=== PATIENT | female | born 1980 | race Caucasian/White ===

== ENCOUNTER 2021-11-02 22:22 | Emergency (ER) | payer MEDICAID, SELFPAY ==
[2021-11-02 22:25] VITALS: BP 128/76; PULSE 114; RESP 18; TEMP 36.9; O2SAT 100; BMI 20.5
[2021-11-02 22:32] VITALS: PULSE 110; RESP 21
--- NOTE | 2021-11-02 22:52 | EKG12_ITS ---
Test Reason : DIZZY, PALPATATIONS Blood Pressure : / mmHG Vent. Rate : 104 BPM Atrial Rate : 104 BPM P-R Int : 144 ms QRS Dur : 082 ms QT Int : 346 ms P-R-T Axes : 072 055 067 degrees QTc Int : 454 ms Sinus tachycardia Otherwise normal ECG Confirmed by GRIS MERLOS, NAM ([id number]), deputy editor in chief SHARLENE DAY ([id number]) on 11/03/2021 10:37:47 AM Referred By: Confirmed By:NAM LANDRY MD
--- NOTE | 2021-11-02 22:52 | CT_ITS ---
STUDY: CT BRAIN WITHOUT CONTRAST ADMINISTRATION OF 2330 HOURS ON 11/02/2021 REASON FOR EXAM: 41-year-old female with dizziness. RADIATION DOSAGE (If Supplied By Facility): CTDIvol = ( 44.99 ) mGy, DLP = ( 812.98 ) mGycm. TECHNIQUE: Transaxial CT imaging of the brain was performed without administration of intravenous contrast material. Individualized dose optimization techniques were used for this CT. Sagittal and coronal reconstructions were obtained and all were demonstrated in osseous and soft tissue algorithms. COMPARISON: No relevant priors. FINDINGS: Normal ventricular system without a midline shift. No intracranial hemorrhage or hematomas. No intracranial mass lesions or infarcts. Normal sella and pituitary. Normal brainstem and posterior fossa. No other intracranial pathology. Normal calvarium without fractures. Normal paranasal sinuses. CT/Brain/Head without Contrast IMPRESSION: 1. Normal unenhanced CT of the brain. 2. No intracranial neoplasms or infarct. 3. No intracranial hemorrhage or hematomas. 4. Normal sella, pituitary, brainstem, and posterior fossa. 5. Normal calvarium and paranasal sinuses. Electronically Signed: Fransisco Garsia MD at 23:47 EDT ,
[2021-11-02] MEDS: diazePAM 5 MG Tablet PO (23:02)
[2021-11-02] MEDS: 0.9% Normal Saline 1,000 ML 999 ML IV (23:03)
[2021-11-02 23:38] LABS: Absolute Neutrophil Count 6.5 X10^3/uL (2.0-7.7); Basophil# 0.07 X10^3/uL; Basophil% 0.7 % (0-1); Eosinophil# 0.07 X10^3/uL; Eosinophils% 0.7 % (0-5); Hematocrit 42.2 % (37-47); Hemoglobin 12.8 g/dL (12.0-15.0); Lymphocyte % 27.2 % (19-41); Mean Corp Hgb Conc 30.3 g/dL (32-36); Mean Corpuscular Hgb 26.2 pg (27.0-32.0); Mean Corpuscular Volume 86.5 fL (81-99); Mean Platelet Vol. 11.6 fl (6.2-12.0); Monocyte# 0.76 X10^3/uL; Monocyte% 7.4 % (0-10); NRBC Flagged by Analyzer 0 % (0-5); Neutrophil # 6.48 X10^3/uL (2.7-7.7); Neutrophil % 62.7 % (47-70); Platelet Count 340 K/mm3 (150-450); RBC Distribution Width CV 13.5 % (11.6-14.6); RBC Distribution Width SD 42.7 fl (35.1-43.9); Red Blood Count 4.88 M/mm3 (4.2-5.4); White Blood Count 10.3 K/mm3 (4.4-11.0)
[2021-11-02 23:49] VITALS: PULSE 98; RESP 16
[2021-11-02 23:51] LABS: Anion Gap 5 (5-15); BUN 10 mg/dL (7-18); BUN/Creat Ratio 13.1 RATIO (10-20); Calcium,Total 8.9 mg/dL (8.5-10.1); Chloride 105 mmol/L (98-107); Creatinine, Serum 0.76 mg/dL (0.55-1.02); EST Glomerular Filtration Rate 89 mL/min (>60); Est Glom Filt Rate - Afr Amer 107 mL/min (>60); Estimated Creatinine Clearance 94.17 ml/min; Glucose 108 mg/dL (74-106); Magnesium 2.2 mg/dL (1.6-2.6); Potassium 4.4 mmol/L (3.5-5.1); Sodium Level 139 mmol/L (136-145)
--- NOTE | 2021-11-03 00:02 | EDS_ITS ---
HPI History of Present Illness Chief Complaint: Dizziness Narrative Narrative: Patient is a 41-year-old female with past medical history of Graves' disease currently on Synthroid. She states for the past 5 to 7 days if she changes positions she will feel dizzy. She states if she lies perfectly still the symptoms seem to improve but not completely resolve. She states that she is also had some loose stool diarrhea associated with this. She states that she has been given a time to pass but has not resolved and secondary to this comes in for evaluation. She denies any tinnitus or ear pain she denies any head trauma or change in vision [facility] Medical History Graves' disease Home Medications Synthroid 175 mcg PO/SL DAILY 11/02/21 [History Last Taken Unknown] diazepam 5 mg tablet (Valium) 5 mg PO TID PRN dizziness or vertigo 5 days #15 tabs 11/03/21 [Rx Last Taken Unknown] Allergy/AdvReac Type Severity Reaction Status Date / Time No Known Allergies Allergy Verified 11/02/21 22:24 Surgical History (Updated 11/02/21 @ 22:37 by Marie Hernandez) Hx of appendectomy Social History Smoking Status: Current every day smoker tobacco type: cigarettes ROS ROS ED Constitutional Constitutional ED: Denies chills or fever(s) Eyes Eyes: Denies blurry vision or change in vision ENT ENT ED: Denies ear pain or sore throat Cardiovascular Cardiovascular: Denies chest pain Respiratory/Chest Respiratory/Chest: Denies cough or dyspnea Gastrointestinal Gastrointestinal: Reports diarrhea; Denies abdominal pain, nausea or vomiting Genitourinary Genitourinary ED: Denies dysuria Musculoskeletal Musculoskeletal: Denies myalgias Integumentary Denies rash Neurologic Neurologic: Reports other Details: Positive dizziness ; Denies headache(s) Hematologic/Lymphatic Hematologic/Lymphatic: Denies easy bleeding or easy bruising EXAM Physical Exam Const Vital Signs: 11/02/21 22:25 11/02/21 22:32 11/02/21 22:32 Temperature 98.4 F Temperature Source Temporal Pulse Rate 114 H 110 H Respiratory Rate 18 21 H Respiratory Effort Normal Non-Labored Respiratory Pattern Normal Blood Pressure 128/76 H Blood Pressure Mean 93 Pulse Ox 100 Oxygen Delivery Method Room Air 11/02/21 23:49 Temperature Temperature Source Pulse Rate 98 Respiratory Rate 16 Respiratory Effort Respiratory Pattern Blood Pressure Blood Pressure Mean Pulse Ox Oxygen Delivery Method Positive well nourished and well developed General Appearance ED: well developed HEENT Reports TM's clear and moist mucous membranes Tympanic Membrane ED: Yes TM's clear Eyes PERRL and EOMs intact bilaterally Neck supple Resp normal respiratory effort and clear to auscultation bilaterally Cardio regular rhythm Rate: tachycardic and other Other Details: Tachycardic rate with regular rhythm radial pulses are plus 2 out of 4 bilaterally are equal and symmetric GI normal to inspection, nondistended, normoactive bowel sounds, non-tender and non-distended Auscultation: normoactive bowel sounds Palpation: soft Extremity normal to inspection Neuro oriented x3 and CN's II-XII intact bilaterally Neuro Narrative: Cranial nerves II through XII are grossly intact there are no focal neurologic deficit. No pronator drift no dysmetria no truncal ataxia. There is mild ho rizontal nystagmus noted and positive Hallpike Cromwell exam on left. NIH stroke scale score of 0 Sensorium / Orientation: alert Psych mental status grossly normal Skin no rashes or lesions noted MDM MDM MDM Narrative Medical decision making narrative: Patient presented to the ER mildly tachycardic but otherwise with stable vitals. Her history and neuro exam is consistent with peripheral vertigo. Based on her symptoms and mildly elevated heart rate did elect to perform basic laboratory studies and head CT. Labs revealed no clinically significant findings. Head CT revealed no acute pathology as well. Patient was hydrated with 1 L of fluid and given 5 mg of Valium. On reevaluation she reports feeling better and is able to ambulate with a steady gait and is therefore safe for discharge. Lab Data Attestation: I reviewed the patient's lab results. Labs: Laboratory Results - last 24 hr 11/02/21 11/02/21 23:10 23:10 WBC 10.3 RBC 4.88 Hgb 12.8 Hct 42.2 MCV 86.5 MCH 26.2 L MCHC 30.3 L RDW Std Deviation 42.7 RDW Coeff of Dayne 13.5 Plt Count 340 MPV 11.6 Immature Gran % (Auto) 1.300 H Neut % (Auto) 62.7 Lymph % (Auto) 27.2 [place] % (Auto) 7.4 Eos % (Auto) 0.7 Baso % (Auto) 0.7 Absolute Neuts (auto) 6.5 Absolute Lymphs (auto) 2.80 Nucleated RBC % 0 Sodium 139 Potassium 4.4 Chloride 105 Carbon Dioxide 29.0 Anion Gap 5 BUN 10 Creatinine 0.76 Estim Creat Clear Calc 94.17 Est GFR (MDRD) Af Amer 107 Est GFR (MDRD) Non-Af 89 BUN/Creatinine Ratio 13.1 Glucose 108 H Calcium 8.9 Magnesium 2.2 Radiography Diagnostic Testing: Clinical Impression(s) from Imaging Studies Brain CT 11/02/21 22:52 IMPRESSION: 1. Normal unenhanced CT of the brain. 2. No intracranial neoplasms or infarct. 3. No intracranial hemorrhage or hematomas. 4. Normal sella, pituitary, brainstem, and posterior fossa. 5. Normal calvarium and paranasal sinuses. Electronically Signed: Fransisco Garsia MD at 23:47 EDT Reading Location ID and State: [address] [place] [address] Tel , Service support , Discharge Plan Triage Chief Complaint: Dizziness ED Provider: Jonathan Galan Dx/Rx/DC Orders Clinical Impression: Peripheral vertigo Instructions: Vertigo Inner Ear Problems, Vertigo Staying Safe Prescriptions: New diazepam [Valium] 5 mg tablet 5 mg PO TID PRN (Reason: dizziness or vertigo) 5 Days Qty: 15 0RF No Action Synthroid 175 mcg PO/SL DAILY Referrals: Manoj Gillis MD [Med Staff - [employer]] - 3-5 Days if not improving Activity Restrictions/Additional Instructions: Please try the Matti maneuver at home to help resolve symptoms faster and return to the ER should you have any further concerns Disposition Disposition: Home, Self Care
== END 2021-11-03 00:39 | disposition home or self-care (01) ==
PROVIDERS: Emergency Provider Emergency Medicine; Visit Provider Emergency Medicine
DX: H81.399 Other peripheral vertigo, unspecified ear (principal); F17.210 Nicotine dependence, cigarettes, uncomplicated; E05.00 Thyrotoxicosis with diffuse goiter without thyrotoxic crisis or storm
CPT/HCPCS: 70450; 80048; 83735; 85025; 93005; 96360; 99282; J7030

== ENCOUNTER 2022-07-27 09:37 | Inpatient (IN) | payer MEDICAID, SELFPAY ==
[2022-07-27] VITALS (8 sets, daily range): BP systolic 96–137; BP diastolic 68–86; PULSE 65–78; RESP 16–18; TEMP 36.3–36.8; O2SAT 97–100; BMI 20.7; BMI 19.9
--- NOTE | 2022-07-27 09:50 | EX.ED.DYSGE1 ---
HPI History of Present Illness Chief Complaint: General Illness Narrative Narrative: Patient presents feeling weak and dizzy. She thinks her thyroid may be off. She is supposed to be on Synthroid but she does not have a place to stay and has not had her medication in some time. She feels shaky and cold. She did spend the night outside and I did get a cold last night. She does not have any headache. She has no neurological symptoms. No recent fevers or chills. No recent trauma. PFSH PFS Medical History Graves' disease Home Medications Synthroid 175 mcg PO/SL DAILY 11/02/21 [History Last Taken Unknown] diazepam 5 mg tablet (Valium) 5 mg PO TID PRN dizziness or vertigo 5 days #15 tabs 11/03/21 [Rx Last Taken Unknown] Allergy/AdvReac Type Severity Reaction Status Date / Time No Known Allergies Allergy Verified 07/27/22 09:41 Surgical History Hx of appendectomy Social History Smoking Status: Current every day smoker tobacco type: cigarettes ROS ROS ED ROS Narrative Past medical history: Hypothyroidism Medications: Synthroid, no other chronic medications Social history: As in HPI Review of systems: All systems negative except as indicated General: No fever. Generalized weakness Eyes: No visual changes ENT: No upper airway congestion, normal voice Neck: No neck pain Cardiovascular: No chest pain Respiratory: No shortness of breath or cough Gastrointestinal: No abdominal pain, nausea vomiting or diarrhea Genitourinary: No dysuria. Denies Musculoskeletal: Denies myalgias no difficulty with ambulation Skin: No rash EXAM Physical Exam Narrative Exam Narrative: Physical exam General: Patient appears comfortable. She does not appear ill Head: Normocephalic, Atraumatic Eyes: Conjunctiva not pale ENT: Slightly dry mucous membranes Neck: Supple, Nontender, No lymphadenopathy Cardiovascular: Regular rate, Regular rhythm Respiratory: No distress, CTA bilaterally Abdomen: Soft, Nontender, Nondistended Back: Nontender, Normal Inspection. Negative for: CVA tenderness Extremities: Nontender, No edema Skin: Normal color, No rash Neurological: Alert, Normal Strength, Normal Sensation Psychological: Normal affect Const Vital Signs: 07/27/22 09:38 07/27/22 10:04 07/27/22 12:00 Temperature 98.3 F Temperature Source Temporal Pulse Rate 78 71 Respiratory Rate 18 16 Respiratory Effort Normal Non-Labored Respiratory Pattern Normal Blood Pressure 131/86 H 137/83 H Blood Pressure Mean 101 101 Pulse Ox 99 97 Oxygen Delivery Method Room Air Room Air MDM MDM MDM Narrative Medical decision making narrative: Patient is found to have significant hypothyroidism with a TSH greater than 500. I went to reevaluate her, she now has paranoias and delusions. I try to ambulate her and she was somewhat off balance. She tells me she has not used meth since 2 days ago, she denies any other drugs. She does have a history of bipolar and she could have a psychotic event. However she is not medically clear for psychiatry due to her hypothyroidism. At this time her blood pressure is normal heart rates normal she does not have any edema, there are no other signs of myxedema coma. I will admit her to the hospital and give her thyroid medication. Lab Data Labs: Laboratory Results - last 24 hr 07/27/22 07/27/22 10:03 10:03 WBC 9.0 RBC 3.47 L Hgb 10.2 L Hct 31.9 L MCV 91.9 MCH 29.4 MCHC 32.0 RDW Std Deviation 48.4 H RDW Coeff of Dayne 14.4 Plt Count 249 MPV 12.2 H Immature Gran % (Auto) 0.100 Neut % (Auto) 61.2 Lymph % (Auto) 31.3 Vance % (Auto) 5.3 Eos % (Auto) 1.0 Baso % (Auto) 1.1 H Absolute Neuts (auto) 5.5 Absolute Lymphs (auto) 2.82 Nucleated RBC % 0 Sodium 137 Potassium 3.6 Chloride 105 Carbon Dioxide 25.0 Anion Gap 7 BUN 14 Creatinine 1.17 H Estim Creat Clear Calc 61.00 Est GFR (MDRD) Af Amer 65 Est GFR (MDRD) Non-Af 54 L BUN/Creatinine Ratio 12.0 Glucose 82 Calcium 8.6 Total Bilirubin 0.40 AST 105 H ALT 44 Alkaline Phosphatase 95 Total Protein 8.0 Albumin 4.2 Globulin 3.8 Albumin/Globulin Ratio 1.1 TSH > 500.00 H Discharge Plan Triage Chief Complaint: General Illness ED Provider: Freddy Pickens Dx/Rx/DC Orders Clinical Impression: Hypothyroidism, Psychosis, Acute confusion, History of drug abuse Prescriptions: No Action Synthroid 175 mcg PO/SL DAILY diazepam [Valium] 5 mg tablet 5 mg PO TID PRN (Reason: dizziness or vertigo) 5 Days Qty: 15 0RF Primary Care Provider: Care Physician,No Primary Referrals: Care Physician,No Primary [Primary Care Provider] - Disposition Disposition: Acute Care Hospital [facility]
[2022-07-27 10:14] LABS: Absolute Lymphocyte Count 2.82 X10^3/uL (0.83-4.51); Absolute Neutrophil Count 5.5 X10^3/uL (2.0-7.7); Basophil% 1.1 % (0-1); Eosinophil# 0.09 X10^3/uL; Hematocrit 31.9 % (37-47); Hemoglobin 10.2 g/dL (12.0-15.0); Lymphocyte # 2.82 X10^3/ul (0.83-4.51); Lymphocyte % 31.3 % (19-41); Mean Corpuscular Hgb 29.4 pg (27.0-32.0); Mean Corpuscular Volume 91.9 fL (81-99); Mean Platelet Vol. 12.2 fl (6.2-12.0); Monocyte# 0.48 X10^3/uL; Monocyte% 5.3 % (0-10); NRBC Flagged by Analyzer 0 % (0-5); Neutrophil % 61.2 % (47-70); Platelet Count 249 K/mm3 (150-450); RBC Distribution Width CV 14.4 % (11.6-14.6); RBC Distribution Width SD 48.4 fl (35.1-43.9); Red Blood Count 3.47 M/mm3 (4.2-5.4)
[2022-07-27 10:50] LABS: ALB/GLOB Ratio 1.1 RATIO (0.9-2.4); AST(SGOT) 105 U/L (15-37); Alanine Aminotransfer ALT/SGPT 44 U/L (13-56); Albumin, Serum 4.2 g/dL (3.2-5.0); Alkaline Phosphatase 95 U/L (45-117); Anion Gap 7 (5-15); BUN 14 mg/dL (7-18); Calcium,Total 8.6 mg/dL (8.5-10.1); Chloride 105 mmol/L (98-107); Creatinine, Serum 1.17 mg/dL (0.55-1.02); EST Glomerular Filtration Rate 54 mL/min (>60); Est Glom Filt Rate - Afr Amer 65 mL/min (>60); Globulin 3.8 g/dL (2.2-4.2); Glucose 82 mg/dL (74-106); Potassium 3.6 mmol/L (3.5-5.1); Sodium Level 137 mmol/L (136-145)
[2022-07-27 11:34] LABS: Thyroid Stim Hormone (TSH) > 500.00 uIU/mL (0.358-3.74)
[2022-07-27] MEDS: Levothyroxine 175 MCG Tablet PO (12:18)
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
--- NOTE | 2022-07-27 14:11 | NURSING ---
DR JERE FORREST
--- NOTE | 2022-07-27 14:24 | NURSING ---
MED SURG OQUENDO HYPOTHIROD
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
[2022-07-27 15:03] LABS: Free T3 < 0.5 pg/mL (2.18-3.98); T4 Free Direct 0.13 ng/dL (0.76-1.46)
--- NOTE | 2022-07-27 16:25 | NURSING ---
AUGUSTIN Aguilar updated on suicide precautions.
[2022-07-27] MEDS: 0.9% Saline Lock 10 ML Syringe IV ×2 (16:53→17:55)
[2022-07-27] MEDS: LEVOTHYROXINE SODIUM 100 MCG VIAL 70 MCG IV (17:54)
[2022-07-27] MEDS: Ensure Plus High Protein 120 ML LIQUID PO (18:06)
[2022-07-28 04:06] LABS: Red Blood Cells-Urine 0 SEEN /hpf (0-5); Squamous Epithelial Cells - UA 0 SEEN /hpf (5-10); White Blood Cells 0 SEEN /hpf (0-5)
[2022-07-28 04:07] LABS: Color, Urine Yellow (Yellow); Glucose, Dipstick Normal (Normal); Ketone-Dipstick Negative (Negative); Leukocyte Esterase-Dipstick Negative /ul (Negative); Nitrite-Dipstick Positive (Negative); Occult Blood-Urine Negative /ul (Negative); Protein-Dipstick Negative (Negative); Urine Bilirubin Dipstick Negative (Negative); Urine Clarity Clear (Clear); Urine Urobilinogen Normal (Normal)
[2022-07-28 04:14] VITALS: BP 98/71; PULSE 74; RESP 16; TEMP 36.5; O2SAT 98
[2022-07-28 04:14] LABS: Internal QC Validated? YES +Cl - CLEAR BKGD; Pregnancy, Urine Negative Negative
[2022-07-28 04:15] LABS: Bacteria 1+ /hpf (None Seen); Mucous, Urine 1+ /hpf (<or=2+)
--- NOTE | 2022-07-28 04:15 | NURSING ---
pt asking nurse if she is and if she is a vampire, unable to focus on anything else. pt did state she did not have any thoughts of harming her self because she is already . sitter in room. pt having a meal denies further needs
[2022-07-28 07:19] LABS: Absolute Lymphocyte Count 2.64 X10^3/uL (0.83-4.51); Absolute Neutrophil Count 4.9 X10^3/uL (2.0-7.7); Basophil# 0.09 X10^3/uL; Basophil% 1.1 % (0-1); Eosinophil# 0.11 X10^3/uL; Eosinophils% 1.4 % (0-5); Hematocrit 31.3 % (37-47); Hemoglobin 9.8 g/dL (12.0-15.0); Lymphocyte # 2.64 X10^3/ul (0.83-4.51); Lymphocyte % 32.4 % (19-41); Mean Corp Hgb Conc 31.3 g/dL (32-36); Mean Corpuscular Hgb 28.7 pg (27.0-32.0); Mean Corpuscular Volume 91.8 fL (81-99); Mean Platelet Vol. 12.2 fl (6.2-12.0); Monocyte# 0.39 X10^3/uL; Monocyte% 4.8 % (0-10); NRBC Flagged by Analyzer 0 % (0-5); Neutrophil # 4.89 X10^3/uL (2.7-7.7); Neutrophil % 60.1 % (47-70); Platelet Count 225 K/mm3 (150-450); RBC Distribution Width CV 14.6 % (11.6-14.6); RBC Distribution Width SD 49.1 fl (35.1-43.9); Red Blood Count 3.41 M/mm3 (4.2-5.4); White Blood Count 8.1 K/mm3 (4.4-11.0)
[2022-07-28 07:51] LABS: ALB/GLOB Ratio 1.1 RATIO (0.9-2.4); AST(SGOT) 75 U/L (15-37); Alanine Aminotransfer ALT/SGPT 35 U/L (13-56); Albumin, Serum 3.4 g/dL (3.2-5.0); Alkaline Phosphatase 67 U/L (45-117); Anion Gap 5 (5-15); BUN 11 mg/dL (7-18); BUN/Creat Ratio 9.6 RATIO (10-20); Chloride 107 mmol/L (98-107); Creatinine, Serum 1.15 mg/dL (0.55-1.02); EST Glomerular Filtration Rate 55 mL/min (>60); Est Glom Filt Rate - Afr Amer 67 mL/min (>60); Estimated Creatinine Clearance 59.89 ml/min; Glucose 98 mg/dL (74-106); Magnesium 2.1 mg/dL (1.6-2.6); Potassium 3.4 mmol/L (3.5-5.1); Protein, Total 6.4 g/dL (6.4-8.2); Sodium Level 137 mmol/L (136-145)
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
[2022-07-28] MEDS: Potassium Chloride Oral Tablet 20 MEQ 40 MEQ PO (08:24)
[2022-07-28] MEDS: Ensure Plus High Protein 120 ML LIQUID PO ×3 (08:33→21:57)
[2022-07-28] MEDS: LEVOTHYROXINE SODIUM 100 MCG VIAL 70 MCG IV (08:33)
[2022-07-28] MEDS: 0.9% Saline Lock 10 ML Syringe IV (08:35)
[2022-07-28 10:15] VITALS: BP 96/68; PULSE 69; RESP 18; TEMP 36.3; O2SAT 98
[2022-07-28 11:00] VITALS: PULSE 78
[2022-07-28 15:00] VITALS: BP 92/61; PULSE 75; RESP 18; TEMP 36.6; O2SAT 96
--- NOTE | 2022-07-28 16:07 | CASEMGMT ---
Social Work SW received referral for Social Determinants of Health and Mental Health concerns. SW spoke with physician. Pt is not medically cleared at this time to be seen by SW. AUGUSTIN will continue to follow at appropriate time. NITA Ovalle
[2022-07-28] MEDS: Lactated Ringers 500 ML 999 ML IV (18:14)
[2022-07-28 20:31] VITALS: BP 111/70; PULSE 74; RESP 16; TEMP 36.8; O2SAT 97
[2022-07-28 22:16] LABS: Amphetamine Urine VISTA POSITIVE (<1000 ng/mL); Barbiturate Urine VISTA NEGATIVE (< 200 ng/mL); Benzodiazepine Urine VISTA NEGATIVE (< 200 ng/mL); Cocaine Urine VISTA NEGATIVE (< 300 ng/mL); Ecstacy Urine VISTA NEGATIVE (< 500 ng/mL); Methadone Urine VISTA NEGATIVE (< 300 ng/mL); PCP Urine VISTA NEGATIVE (< 25 ng/mL); THC Urine VISTA POSITIVE (< 50 ng/mL); Vista UDS pH Range 5
[2022-07-29 05:36] VITALS: BP 106/71; PULSE 70; RESP 16; TEMP 36.6; O2SAT 96
[2022-07-29 06:44] LABS: Absolute Lymphocyte Count 3.02 X10^3/uL (0.83-4.51); Absolute Neutrophil Count 3.2 X10^3/uL (2.0-7.7); Basophil# 0.06 X10^3/uL; Basophil% 0.9 % (0-1); Eosinophil# 0.11 X10^3/uL; Eosinophils% 1.6 % (0-5); Hematocrit 33.5 % (37-47); Hemoglobin 10.2 g/dL (12.0-15.0); Lymphocyte # 3.02 X10^3/ul (0.83-4.51); Lymphocyte % 44.6 % (19-41); Mean Corp Hgb Conc 30.4 g/dL (32-36); Mean Corpuscular Hgb 28.7 pg (27.0-32.0); Mean Corpuscular Volume 94.1 fL (81-99); Mean Platelet Vol. 12.7 fl (6.2-12.0); Monocyte# 0.36 X10^3/uL; Monocyte% 5.3 % (0-10); NRBC Flagged by Analyzer 0 % (0-5); Neutrophil % 47.3 % (47-70); Platelet Count 217 K/mm3 (150-450); RBC Distribution Width CV 14.6 % (11.6-14.6); RBC Distribution Width SD 51.1 fl (35.1-43.9); Red Blood Count 3.56 M/mm3 (4.2-5.4); White Blood Count 6.8 K/mm3 (4.4-11.0)
[2022-07-29 07:16] LABS: ALB/GLOB Ratio 1.1 RATIO (0.9-2.4); AST(SGOT) 65 U/L (15-37); Alanine Aminotransfer ALT/SGPT 37 U/L (13-56); Albumin, Serum 3.2 g/dL (3.2-5.0); Alkaline Phosphatase 85 U/L (45-117); Anion Gap 5 (5-15); BUN 10 mg/dL (7-18); BUN/Creat Ratio 9.5 RATIO (10-20); Calcium,Total 8.2 mg/dL (8.5-10.1); Chloride 106 mmol/L (98-107); Creatinine, Serum 1.05 mg/dL (0.55-1.02); EST Glomerular Filtration Rate 61 mL/min (>60); Est Glom Filt Rate - Afr Amer 74 mL/min (>60); Glucose 82 mg/dL (74-106); Potassium 3.8 mmol/L (3.5-5.1); Protein, Total 6.2 g/dL (6.4-8.2); Sodium Level 138 mmol/L (136-145)
--- NOTE | 2022-07-29 07:30 | NURSING ---
Pt denied suicidal and homicidal ideation during shift assessments. Slightly withdrawn but overall compliant with care. Alert and Orientated to person, place, and time. Sitter stayed with patient.
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
[2022-07-29 08:58] VITALS: BP 105/73; PULSE 80; RESP 16; TEMP 36.8; O2SAT 98
[2022-07-29] MEDS: LEVOTHYROXINE SODIUM 100 MCG VIAL 70 MCG IV (09:01)
[2022-07-29] MEDS: 0.9% Saline Lock 10 ML Syringe IV (09:01)
[2022-07-29] MEDS: Ensure Plus High Protein 120 ML LIQUID PO ×2 (09:02→22:18)
[2022-07-29] MEDS: Ondansetron 8 MG Tablet PO (13:16)
[2022-07-29 14:42] VITALS: BP 108/71; PULSE 70; RESP 16; TEMP 36.8; O2SAT 98
[2022-07-29 20:43] VITALS: BP 101/87; PULSE 77; RESP 16; TEMP 36.7; O2SAT 97
[2022-07-30 04:58] VITALS: BP 94/63; PULSE 71; RESP 16; TEMP 36.8; O2SAT 99
[2022-07-30 06:37] LABS: Absolute Lymphocyte Count 2.88 X10^3/uL (0.83-4.51); Absolute Neutrophil Count 2.5 X10^3/uL (2.0-7.7); Basophil# 0.05 X10^3/uL; Basophil% 0.8 % (0-1); Eosinophils% 1.7 % (0-5); Hemoglobin 10.2 g/dL (12.0-15.0); Lymphocyte # 2.88 X10^3/ul (0.83-4.51); Lymphocyte % 48.8 % (19-41); Mean Corp Hgb Conc 31.9 g/dL (32-36); Mean Corpuscular Hgb 29.7 pg (27.0-32.0); Monocyte% 6.8 % (0-10); NRBC Flagged by Analyzer 0 % (0-5); Neutrophil # 2.46 X10^3/uL (2.7-7.7); Neutrophil % 41.7 % (47-70); Platelet Count 226 K/mm3 (150-450); RBC Distribution Width SD 51.3 fl (35.1-43.9); Red Blood Count 3.44 M/mm3 (4.2-5.4); White Blood Count 5.9 K/mm3 (4.4-11.0)
[2022-07-30 07:10] LABS: AST(SGOT) 51 U/L (15-37); Alanine Aminotransfer ALT/SGPT 34 U/L (13-56); Albumin, Serum 3.2 g/dL (3.2-5.0); Alkaline Phosphatase 86 U/L (45-117); Anion Gap 5 (5-15); BUN 14 mg/dL (7-18); BUN/Creat Ratio 13.5 RATIO (10-20); Calcium,Total 8.2 mg/dL (8.5-10.1); Chloride 105 mmol/L (98-107); Creatinine, Serum 1.04 mg/dL (0.55-1.02); EST Glomerular Filtration Rate 62 mL/min (>60); Est Glom Filt Rate - Afr Amer 75 mL/min (>60); Estimated Creatinine Clearance 66.23 ml/min; Globulin 3.3 g/dL (2.2-4.2); Glucose 88 mg/dL (74-106); Potassium 3.8 mmol/L (3.5-5.1); Protein, Total 6.5 g/dL (6.4-8.2); Sodium Level 139 mmol/L (136-145)
[2022-07-30 08:19] VITALS: BP 98/62; PULSE 71; RESP 18; TEMP 36.8; O2SAT 98
[2022-07-30] MEDS: Levothyroxine 75 MCG Tablet PO (08:52)
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
--- NOTE | 2022-07-30 10:55 | CASEMGMT ---
Social Work SW spoke w/physician, pt is medically cleared to be seen by crisis. SW called Crisis, spoke w/Do. She asked SW to fax the face sheet, and she will be here shortly to see pt. Face sheet faxed. AUGUSTIN will continue to follow. ZHANE Adames
--- NOTE | 2022-07-30 12:19 | CASEMGMT ---
Social work SW spoke w/pit worker power shovel Do, she is recommending inpatient psychiatric placement at this time. Based on this SW's conversation w/the pit worker power shovel, further discussion around SDOH will not be explored at this time. SW remains available should pt be more receptive to SDOH resource information during her stay. Pt does not have insurance, so will be referred to [facility] at this time. ZHANE Adames
--- NOTE | 2022-07-30 12:24 | NURSING ---
Andrew finishing and shipping supervisor informed suicide precautions to be maintained.
--- NOTE | 2022-07-30 12:25 | EKG12_ITS ---
Test Reason : PSYPH PLACEMENT Blood Pressure : / mmHG Vent. Rate : 072 BPM Atrial Rate : 072 BPM P-R Int : 152 ms QRS Dur : 086 ms QT Int : 434 ms P-R-T Axes : 076 080 097 degrees QTc Int : 475 ms Normal sinus rhythm Low voltage QRS Nonspecific T wave abnormality Abnormal ECG When compared with ECG of 02-NOV-2021 22:30, Nonspecific T wave abnormality now evident in Anterolateral leads Confirmed by GRIS MERLOS, NAM ([id number]), newspaper editor SHARLENE DAY ([id number]) on 08/03/2022 1:53:03 PM Referred By: JERE Confirmed By:NAM LANDRY MD
--- NOTE | 2022-07-30 13:36 | CHAPLAIN ---
Type of Pastoral Visit ___ Initial Visit ___ Follow-up Visit ___ On-call Visit ___ General Patient Visit ___ Spiritual Assessment ___ Family Conference ___ Bereavement ___ Rapid Response ___ Code Blue ___ Other (describe below) Pastoral Care Referral From ___ Patient ___ Family ___ Nurse ___ Physician ___ Naturopathic Oncology Provider ___ Board Turner ___ Other (describe below) Sacrament/Intervention ___ Active listening ___ Anointing ___ Zoroastrianism ___ Bereavement ___ Communion ___ Arianna exploration ___ ___ Life review ___ Prayer ___ Reconciliation ___ Sacrament of Sick ___ Supportive presence ___ Wedding ___ Other (describe below) Pastoral Comments third attempt in three days to make a visit with this patient; pt is always asleep and does not awaken
--- NOTE | 2022-07-30 14:17 | PCA ---
This patients mom left me her contact number to let her know what happens with patient. Patient is sleeping at this time to ask if it is okay to add patients mother to her contact list for information. This patients moms name is Page Orellana. Her phone number is [phone].
[2022-07-30 14:19] VITALS: BP 92/52; PULSE 70; RESP 16; TEMP 37; O2SAT 98
[2022-07-30] MEDS: Ensure Plus High Protein 120 ML LIQUID PO (22:58)
[2022-07-30 23:01] VITALS: BP 102/62; PULSE 70; RESP 16; TEMP 37; O2SAT 97
[2022-07-31 05:55] VITALS: BP 98/71; PULSE 71; RESP 16; TEMP 36.9; O2SAT 97
[2022-07-31] MEDS: Levothyroxine 75 MCG Tablet PO (05:57)
[2022-07-31 06:40] LABS: Absolute Lymphocyte Count 2.55 X10^3/uL (0.83-4.51); Absolute Neutrophil Count 2.6 X10^3/uL (2.0-7.7); Basophil# 0.06 X10^3/uL; Eosinophils% 1.7 % (0-5); Hematocrit 32.6 % (37-47); Hemoglobin 10.1 g/dL (12.0-15.0); Lymphocyte # 2.55 X10^3/ul (0.83-4.51); Lymphocyte % 44.6 % (19-41); Mean Corpuscular Hgb 28.9 pg (27.0-32.0); Mean Corpuscular Volume 93.4 fL (81-99); Mean Platelet Vol. 12.1 fl (6.2-12.0); Monocyte# 0.39 X10^3/uL; Monocyte% 6.8 % (0-10); NRBC Flagged by Analyzer 0 % (0-5); Neutrophil # 2.61 X10^3/uL (2.7-7.7); Neutrophil % 45.7 % (47-70); Platelet Count 220 K/mm3 (150-450); RBC Distribution Width CV 14.9 % (11.6-14.6); RBC Distribution Width SD 51.5 fl (35.1-43.9); Red Blood Count 3.49 M/mm3 (4.2-5.4); White Blood Count 5.7 K/mm3 (4.4-11.0)
[2022-07-31 07:08] LABS: AST(SGOT) 43 U/L (15-37); Alanine Aminotransfer ALT/SGPT 31 U/L (13-56); Albumin, Serum 3.3 g/dL (3.2-5.0); Alkaline Phosphatase 75 U/L (45-117); Anion Gap 5 (5-15); BUN 17 mg/dL (7-18); BUN/Creat Ratio 17.4 RATIO (10-20); Calcium,Total 8.5 mg/dL (8.5-10.1); Chloride 103 mmol/L (98-107); Creatinine, Serum 0.98 mg/dL (0.55-1.02); EST Glomerular Filtration Rate 67 mL/min (>60); Est Glom Filt Rate - Afr Amer 80 mL/min (>60); Estimated Creatinine Clearance 70.28 ml/min; Globulin 3.4 g/dL (2.2-4.2); Glucose 86 mg/dL (74-106); Protein, Total 6.7 g/dL (6.4-8.2); Sodium Level 136 mmol/L (136-145)
[2022-07-31] MEDS: Ensure Plus High Protein 120 ML LIQUID PO ×2 (07:44→13:29)
[2022-07-31] MEDS: Ondansetron 8 MG Tablet PO (07:44)
[2022-07-31 08:11] VITALS: BP 96/64; PULSE 73; RESP 16; TEMP 36.9; O2SAT 99
--- NOTE | 2022-07-31 08:49 | CASEMGMT ---
Addendum entered by Joselin Álvarez 07/31/22 14:51: Social Work SW called Crisis again, spoke w/Starr. She states that they called a little bit ago and they are still waiting for the physician to review the referral. She states that pt may be here through the weekend. They will call [facility] if they get an acceptance and bed. ZHANE Adames Addendum entered by Joselin Álvarez 07/31/22 11:19: Social Work SW received a call back from Pavel at [facility], he states that [facility] has the pt's information and the doctor still needs to review it. He will let SW know as the day goes, and AUGUSTIN also gave Pavel the number to the nurse's station if he gets any information after this SW leaves for the day. AUGUSTIN let physician know. ZHANE Adames Original Note: Social Work SW called [facility], message left for Starr in crisis inquiring the status of pt's acceptance and transfer to [facility]. ZHANE Adames
[2022-07-31 12:10] VITALS: BP 108/58; PULSE 66; RESP 16; TEMP 36.8; O2SAT 97
--- NOTE | 2022-07-31 14:45 | CHAPLAIN ---
Type of Pastoral Visit _x__ Initial Visit ___ Follow-up Visit ___ On-call Visit ___ General Patient Visit ___ Spiritual Assessment ___ Family Conference ___ Bereavement ___ Rapid Response ___ Code Blue ___ Other (describe below) Pastoral Care Referral From __x_ Patient ___ Family ___ Nurse ___ Physician ___ Global Account Director ___ It Help Desk Associate ___ Other (describe below) Sacrament/Intervention ___ Active listening ___ Anointing ___ Mormon ___ Bereavement ___ Communion ___ Arianna exploration ___ ___ Life review _x__ Prayer ___ Reconciliation ___ Sacrament of Sick _x__ Supportive presence ___ Wedding ___ Other (describe below) Pastoral Comments patient is sleeping with a sitter in the room; pt wakes up to her name; pt says she does not need anything but welcomes a prayer If you want to; prayer and offer of ongoing support given
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
[2022-07-31 16:21] VITALS: BP 101/58; PULSE 76; RESP 16; TEMP 37.1; O2SAT 100
[2022-07-31 16:47] VITALS: PULSE 76
[2022-07-31 18:28] LABS: Alcohol, Blood (Medical)-Serum < 3.0 mg/dL
[2022-07-31] MEDS: hydrOXYzine PAM 25 MG Capsule 50 MG PO (20:43)
[2022-08-01] VITALS (7 sets, daily range): BP systolic 79–112; BP diastolic 53–66; PULSE 66–83; RESP 16; TEMP 36.6–37.6; O2SAT 98–100
[2022-08-01] MEDS: Levothyroxine 75 MCG Tablet PO (05:46)
[2022-08-01] MEDS: 0.9% Normal Saline 1,000 ML 999 ML IV (08:36)
[2022-08-01] MEDS: Ensure Plus High Protein 120 ML LIQUID PO ×3 (08:38→17:12)
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
[2022-08-01] MEDS: hydrOXYzine PAM 25 MG Capsule 50 MG PO (18:34)
[2022-08-02 04:53] VITALS: BP 101/64; PULSE 74; RESP 16; TEMP 36.9; O2SAT 95
[2022-08-02] MEDS: Levothyroxine 75 MCG Tablet PO (04:56)
[2022-08-02 06:16] LABS: Absolute Lymphocyte Count 2.81 X10^3/uL (0.83-4.51); Absolute Neutrophil Count 2.6 X10^3/uL (2.0-7.7); Basophil# 0.06 X10^3/uL; Eosinophil# 0.17 X10^3/uL; Eosinophils% 2.8 % (0-5); Hematocrit 31.4 % (37-47); Hemoglobin 9.6 g/dL (12.0-15.0); Lymphocyte # 2.81 X10^3/ul (0.83-4.51); Lymphocyte % 45.6 % (19-41); Mean Corp Hgb Conc 30.6 g/dL (32-36); Mean Corpuscular Hgb 28.8 pg (27.0-32.0); Mean Corpuscular Volume 94.3 fL (81-99); Mean Platelet Vol. 11.8 fl (6.2-12.0); Monocyte# 0.49 X10^3/uL; NRBC Flagged by Analyzer 0 % (0-5); Neutrophil # 2.62 X10^3/uL (2.7-7.7); Neutrophil % 42.4 % (47-70); Platelet Count 222 K/mm3 (150-450); RBC Distribution Width CV 14.6 % (11.6-14.6); RBC Distribution Width SD 50.6 fl (35.1-43.9); Red Blood Count 3.33 M/mm3 (4.2-5.4); White Blood Count 6.2 K/mm3 (4.4-11.0)
[2022-08-02 06:50] LABS: ALB/GLOB Ratio 1.1 RATIO (0.9-2.4); AST(SGOT) 37 U/L (15-37); Alanine Aminotransfer ALT/SGPT 24 U/L (13-56); Albumin, Serum 3.4 g/dL (3.2-5.0); Alkaline Phosphatase 74 U/L (45-117); Anion Gap 4 (5-15); BUN 18 mg/dL (7-18); BUN/Creat Ratio 20.1 RATIO (10-20); Calcium,Total 8.3 mg/dL (8.5-10.1); Chloride 105 mmol/L (98-107); EST Glomerular Filtration Rate 73 mL/min (>60); Est Glom Filt Rate - Afr Amer 89 mL/min (>60); Estimated Creatinine Clearance 76.53 ml/min; Glucose 80 mg/dL (74-106); Potassium 3.8 mmol/L (3.5-5.1); Protein, Total 6.4 g/dL (6.4-8.2); Sodium Level 137 mmol/L (136-145)
[2022-08-02] MEDS: Ensure Plus High Protein 120 ML LIQUID PO ×3 (10:31→17:17)
[2022-08-02] MEDS: hydrOXYzine PAM 25 MG Capsule 50 MG PO ×2 (10:31→19:50)
[2022-08-02 11:00] VITALS: BP 125/79; PULSE 73; RESP 16; TEMP 36.6; O2SAT 99
[2022-08-02] MEDS: Acetaminophen 325 MG Tablet 650 MG PO ×2 (11:19→19:49)
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
[2022-08-02] MEDS: Lidocaine 5% Patch 1 PATCH TOPICAL (15:08)
[2022-08-02 17:00] VITALS: BP 102/65; PULSE 72; RESP 16; TEMP 37.2; O2SAT 99
[2022-08-02] MEDS: traZODone 100 MG Tablet PO (19:49)
[2022-08-02 20:13] VITALS: BP 103/68; PULSE 76; RESP 16; TEMP 36.9; O2SAT 99
[2022-08-03 04:00] VITALS: BP 107/64; PULSE 70; RESP 16; TEMP 36.7; O2SAT 96
[2022-08-03] MEDS: Levothyroxine 75 MCG Tablet PO (04:01)
[2022-08-03] MEDS: Ensure Plus High Protein 120 ML LIQUID PO (07:57)
[2022-08-03] MEDS: Acetaminophen 325 MG Tablet 650 MG PO (07:59)
--- NOTE | 2022-08-03 08:05 | PN.HOSP_ITS ---
Reason for Visit Reason for Visit: Diagnoses Hypothyroidism, unspecified (07/27/22) Other psychoactive substance abuse, in remission (07/27/22) Altered mental status, unspecified (07/27/22) Subjective Subjective Patient is a 42-year-old lady with multiple comorbidities including polysubstance dependence, hypothyroidism admitted with multiple complaints including dizziness, agitation and apparently not taking her prescribed medication. An assessment of acute psychosis made admitted to regular nursing floor with consult placed to the crisis team to assist with placement in an inpatient psychiatric facility Objective Data Objective Data Vital Signs: Vital Signs Temp Pulse Resp BP Pulse Ox O2 Del Method 98.1 F 70 16 107/64 96 Room Air 08/03/22 04:00 08/03/22 04:00 08/03/22 04:00 08/03/22 04:00 08/03/22 04:00 08/03/22 04:00 Oxygen Delivery Method Room Air Weight: 59.534 kg Body Mass Index (BMI) 19.9 Intake & Output: Intake and Output for Last 24 Hours 08/01/22 08/02/22 08/03/22 23:59 23:59 23:59 Intake Total 1250 / 1250 350 / 350 250 / 250 Balance 1250 / 1250 350 / 350 250 / 250 Lab / Micro Data Result Diagrams: 08/02/22 05:42 08/02/22 05:42 Micro: Microbiology 07/30/22 12:40 Nasal Secretion SARS-CoV-2 Antigen (Rapid) - Final Physical Exam Narrative GENERAL: cooperative HEENT: Atraumatic; normocephalic EYES; Anicteric, Normal Conjunctiva NECK; supple, normal thyroid, RESPIRATORY: Diminished to auscultation CARDIOVASCULAR: Regular S1 S2, GI: soft, normoactive bowel sounds, : No Renal angle tenderness; EXTREMITIES: No edema, no clubbing, MUSCULOSKELETAL: no muscle wasting NEURO: Awake; no lateralizing signs. SKIN: No Rash PSYCH; Flat affect Assessment & Plan Assessment/Plan (1) Altered mental status: (2) Hypothyroidism: (3) History of drug abuse: PLAN: Plan Patient is a 42-year-old lady with multiple comorbidities including polysu bstance dependence, hypothyroidism admitted with multiple complaints including dizziness, agitation and apparently not taking her prescribed medication. An assessment of acute psychosis made admitted to regular nursing floor with consult placed to the crisis team to assist with placement in an inpatient psychiatric facility 1. Psychosis ? Patient has been admitted to regular nursing floor evaluated by the crisis team plan is for patient to be transferred to an inpatient psych facility once b ed becomes available 2. Hypothyroidism ? Patient was apparently not compliant with her Synthroid resumed 3. Acute renal insufficiency - managed with IV fluids 4. Anemia - Secondary to chronic disorder monitoring H&H and transfuse if patient becomes symptomatic or hemoglobin falls below 7 5. Polysubstance abuse ? Patient apparently uses meth counseled on cessation 6. DVT prophylaxis ? Low risk did encourage ambulation Time spent in the patient's overall evaluation,decision-making process, review of diagnostic data, adjustment of management, discussion with other providers, nursing nursing and ancillary staff involved in patient's care documentation, 35 Minutes Charges/Coding Visit Charges Inpatient E&M: 65421 Subs Hosp L2
[2022-08-03 08:10] VITALS: BP 103/62; PULSE 65; RESP 18; TEMP 36.3; O2SAT 98
--- NOTE | 2022-08-03 09:26 | CASEMGMT ---
Social Work Phone call to Crisis and spoke with Do. Pt continues to be on waiting list at [facility]. Crisis to update [facility] when bed is available. NITA Ovalle
--- NOTE | 2022-08-03 12:10 | PCM.DC.SUM ---
Providers Date of Admission: 07/27/22 Date of Discharge: 08/03/22 Primary Care Physician: No Primary Care Phys Reason For Visit: HYPOTHYROID / AMS / KRISSY Diagnosis Discharge Diagnosis (1) Altered mental status: Status: Acute Code(s): R41.82 - Altered mental status, unspecified (2) Hypothyroidism: Status: Acute Code(s): E03.9 - Hypothyroidism, unspecified (3) History of drug abuse: Status: Acute Code(s): F19.11 - Other psychoactive substance abuse, in remission Plan Patient is a 42-year-old lady with multiple comorbidities including polysubstance dependence, hypothyroidism admitted with multiple complaints including dizziness, agitation and apparently not taking her prescribed medication. An assessment of acute psychosis made admitted to regular nursing floor with consult placed to the crisis team to assist with placement in an inpatient psychiatric facility 1. Psychosis ? Patient has been admitted to regular nursing floor evaluated by the crisis team plan is for patient to be transferred to an inpatient psych facility once bed becomes available 2. Hypothyroidism ? Patient was apparently not compliant with her Synthroid resumed 3. Acute renal insufficiency - managed with IV fluids 4. Anemia - Secondary to chronic disorder monitoring H&H and transfuse if patient becomes symptomatic or hemoglobin falls below 7 5. Polysubstance abuse ? Patient apparently uses meth counseled on cessation 6. DVT prophylaxis ? Low risk did encourage ambulation Time spent in the patient's overall evaluation,decision-making process, review of diagnostic data, adjustment of management, discussion with other providers, nursing nursing and ancillary staff involved in patient's care documentation, 35 Minutes Medications at Discharge Home Medications levothyroxine 75 mcg tablet 75 mcg PO 0600 #90 tabs 08/03/22 Hospital Course Summary of Care Provided Minutes Spent on Discharge: 35 Physical Exam Narrative GENERAL: cooperative HEENT: Atraumatic; normocephalic EYES; Anicteric, Normal Conjunctiva NECK; supple, normal thyroid, RESPIRATORY: Diminished to auscultation CARDIOVASCULAR: Regular S1 S2, GI: soft, normoactive bowel sounds, : No Renal angle tenderness; EXTREMITIES: No edema, no clubbing, MUSCULOSKELETAL: no muscle wasting NEURO: Awake; no lateralizing signs. SKIN: No Rash PSYCH; Flat affect Weight / BMI Weight Weight: 59.534 kg Body Mass Index (BMI) 19.9 ABG / Lab / Microbiology Data Result Diagrams: 08/02/22 05:42 08/02/22 05:42 Microbiology: Microbiology 07/30/22 12:40 Nasal Secretion SARS-CoV-2 Antigen (Rapid) - Final Meaningful Use Info Meaningful Use Diagnoses (Choose all that apply): None applicable Discharge Plan Admission Admit Date/Time: 07/27/22 14:42 Primary Reason for Your Visit: Psychosis Attending Provider: Alexis Arias Primary Care Provider: Care Physician,No Primary Consulting Providers: Corine Hooper Instructions Patient Instructions: Levothyroxine Sodium Oral tablet, Hypothyroidism Myxedema Dc, ED Hypothyroidism Additional Instructions / Restrictions: DISCHARGE INSTRUCTIONS PLEASE READ *Please take this with you to your next doctors appointment* -On discharge you will take 75 mcg of Synthroid daily -Please follow-up with endocrinology upon discharge. You can follow with Dr. Nowak who is a local metal off bearer, please call their office to schedule hospital follow-up appointment upon discharge. -You will need repeat laboratory evaluation on an outpatient basis to continue to adjust dosing and verify improvement, this can be ordered on an outpatient basis - It is strongly advised that you refrain from any substance use. Please call [facility] located at [address] [place] [phone] (ph [phone]) if you are interested in further resources -Please call your primary care provider's office upon discharge to schedule a hospital follow up within 1 week. -If you do not have a primary care physician of list of local primary care physicians can be provided for you upon discharge. Please ask for this list prior to discharge -For any concerning signs or symptoms please call 911 or proceed to the nearest emergency department Discharge Orders/Prescriptions Prescriptions: New levothyroxine 75 mcg Tablet 75 mcg PO 0600 Qty: 90 0RF Discontinued Synthroid 175 mcg PO/SL DAILY Rx Instructions: HASNT FILLED SINCE 11/2021 Referrals / Follow Up: Rob Nowak MD [Med Staff - Courtesy Staff] - See Referral Note ( -Please follow-up with endocrinology upon discharge. Please call their office to schedule an appointment to establish care.) Care Physician,No Primary [Primary Care Provider] - See Referral Note ( -If you do not have a primary care physician of list of local primary care physicians can be provided for you upon discharge. Please ask for this list prior to discharge) Disposition Disposition (needs filled in before D/C Order can be placed): Psychiatric Hospital or Unit Charges/Coding Visit Charges Inpatient E&M: 53637 Disch Hosp >30min
--- NOTE | 2022-08-03 12:14 | PCA ---
Received call from [facility] stating that they will have a bed this afternoon, physician and charge nurse aware. report call to [phone] ext [phone], call [phone] ext [phone] with time of transportation. pt will be going to bed C2.
--- NOTE | 2022-08-03 12:27 | PHA.DC.MR ---
Pharmacy Service has performed discharge medication reconciliation for this patient. The patient's discharge medication list was reviewed for discrepancies and discrepancies were resolved. Home Medications levothyroxine 75 mcg tablet 75 mcg PO 0600 #90 tabs 08/03/22
[2022-08-03 13:00] VITALS: BP 103/64; PULSE 66; RESP 18; TEMP 36.9; O2SAT 99
== END 2022-08-03 14:03 | DRG 885 ==
LOC: ED 14:22 → MS3 15:22
PROVIDERS: Admitting Provider Internal Medicine; Emergency Provider Emergency Medicine; Visit Provider Internal Medicine
DX: R41.82 Altered mental status, unspecified (principal); R45.851 Suicidal ideations; F19.11 Other psychoactive substance abuse, in remission; D64.9 Anemia, unspecified; E03.9 Hypothyroidism, unspecified; F15.90 Other stimulant use, unspecified, uncomplicated; F17.210 Nicotine dependence, cigarettes, uncomplicated; Z91.148 Patient's other noncompliance with medication regimen for other reason; Z59.00 Homelessness unspecified; N28.9 Disorder of kidney and ureter, unspecified
CPT/HCPCS: 36415; 80053; 80307; 81001; 81025; 82077; 83735; 84439; 84443; 84481; 85025; 87426; 93005; 97802; 99284; J7030; J7040; J7120; A4216